=== PATIENT | female | born 1995 | race Caucasian/White ===

== ENCOUNTER → 2020-05-29 14:05 | Outpatient (BNVA) | payer BC, SELFPAY | PROVIDERS: Family Provider Family Medicine; Visit Provider Nurse Practitioner Women's Health | DX: Z30.431 Encounter for routine checking of intrauterine contraceptive device (principal); R10.2 Pelvic and perineal pain | CPT/HCPCS: 87491; 87591; 87661 ==

== ENCOUNTER → 2020-06-07 08:10 | Outpatient (BNVA) | payer BC, SELFPAY | PROVIDERS: Family Provider Family Medicine; Visit Provider Nurse Practitioner Women's Health | DX: Z30.431 Encounter for routine checking of intrauterine contraceptive device (principal); R10.2 Pelvic and perineal pain | CPT/HCPCS: 76830 ==

== ENCOUNTER 2020-07-27 06:48 | Inpatient (IN) | payer BC, SELFPAY ==
[2020-07-27 06:55] VITALS: BP 127/80; PULSE 110; RESP 18; TEMP 36.6; O2SAT 98; BMI 23.3
--- NOTE | 2020-07-27 07:20 | W.ED.WOUNDLC ---
HPI - Wound/Laceration General: Chief Complaint: Wound/Laceration Stated Complaint: R LEG LAC Time Seen by Provider: 07/27/20 07:06 History of Present Illness: HPI narrative: 24-year-old female presents emergency room after an incident of self-harm she stabbed herself in the lower leg laterally. She did it in an attempt to harm herself last night after breaking up with her boyfriend she was extremely upset. Now she is awake alert and sober she denies any plan at this point to harm herself although she does admit she did this out of frustration anger with her current situation last night. Onset (ago): hour(s) Extremity Location: Right: lower leg Place: home Patient tetanus UTD: No Associated symptoms: Denies chills, fever(s), foreign body sensation, inability to move, numbness, pain, syncope or vomiting Review of Systems Const: Denies: fever(s) or chills ENMT: Denies: throat pain, ear or mastoid pain, nasal discharge or nasal congestion Card: Denies: syncope Resp: Denies: dyspnea, productive cough or non-productive cough GI: Denies: vomiting : Denies: flank pain, difficulty voiding, dysuria, urinary frequency or urinary urgency Skin/Breast: Denies: rash or pruritus PFSH ED PFSH: Medical History Anxiety with depression Surgical History H/O unilateral salpingectomy (~2009) Left-- at the same time of her appy History of appendectomy (~2009) Family History Grandmother Breast cancer, Onset Age: 50 Paternal grandmother Diabetes Maternal grandmother Hypertension Paternal grandmother Family/Other Diabetes Paternal uncle Denies family history of Colon cancer Ovarian cancer Heart disease Hyperlipidemia Family history of thyroid problem Uterine cancer Social History Additional social history: Tobacco use: Denies Alcohol use: Denies Drug use: Marijuana use for pain management Physical Exam Const: COMMON NORMALS: no acute distress GENERAL APPEARANCE: cooperative and comfortable ORIENTATION/CONSCIOUSNESS: Yes awake, Yes oriented to person, Yes oriented to place and Yes oriented to time HENMT: COMMON NORMALS: normocephalic, atraumatic and hearing grossly normal bilaterally HEAD & SCALP: normocephalic and atraumatic Eye: COMMON NORMALS: Equal, round and reactive pupils present, EOMs intact bilaterally, conjunctivae normal and no scleral icterus CONJUNCTIVA: Yes conjunctivae normal PUPIL: Yes Equal, round and reactive pupils present Neck/C-Spine: COMMON NORMALS: full ROM, no lymphadenopathy, supple and no JVD Lymph: LYMPHATIC: no lymphadenopathy noted and no lymphedema noted Resp: COMMON NORMALS: normal respiratory effort, No retractions, No use of accessory muscles and clear to auscultation bilaterally AUSCULTATION: clear to auscultation bilaterally Cardio: COMMON NORMALS: no JVD, regular rate, regular rhythm and No murmurs present (Cardio) RATE: regular rate RHYTHM: regular rhythm GI: COMMON NORMALS: Soft to palpation and No hepatosplenomegaly present AUSCULTATION: Yes normoactive bowel sounds PALPATION: Yes Soft to palpation, No Tenderness to palpation present (GI), No Guarding due to palpation present (GI) and Yes No hepatosplenomegaly present Neuro: SENSORIUM/ORIENTATION: Yes oriented to person, Yes oriented to place and Yes oriented to time Skin: COMMON NORMALS: no rashes or lesions noted GENERAL SKIN EXAM: no rashes or lesions noted Course Vital Signs: Vital signs: Vital Signs Temperature 98.3 F 07/29/20 06:00 Pulse Rate 85 07/29/20 06:00 Respiratory Rate 16 07/29/20 06:00 Blood Pressure 107/70 07/29/20 06:00 Pulse Oximetry 98 07/29/20 06:00 MDM - Wound/Laceration MDM Narrative: Medical decision making narrative: Wound repaired by [facility] nurse practitioner. Discussed with Dr. Ace recommend that she be admitted. Concerned about irrational decision making the wound she inflicted on her leg had a been inflicted in another area could have caused serious bodily injury. She is still somewhat distraught and concerned she may further harm herself if she were discharged Dr. Ace is in agreement will admit her to the stress unit. Lab Data: Labs: Lab Results 09/25/20 09/25/20 09/25/20 Range/Units 07:21 07:21 07:21 WBC (4.0-10.0) 10^3/ uL RBC (4.1-5.3) 10^6/u L Hgb (11.5-15.3) g/dL Hct (37.0-47.0) % MCV (81-99) fL MCH (28.0-34.0) pg MCHC (30.0-36.0) g/dL RDW (12.1-15.1) % Plt Count (130-400) 10^3/c mm MPV (7.4-10.4) fL Neut % (Auto) % Lymph % (Auto) % Gonzales % (Auto) % Eos % (Auto) % Baso % (Auto) % Neut # (Auto) (1.8-7.7) 10^3/u L Lymph # (Auto) (0.8-4.8) 10^3/u L Gonzales # (Auto) (0.2-0.9) 10^3/u L Eos # (Auto) (0.0-0.8) 10^3/u L Baso # (Auto) (0.0-0.1) 10^3/u L Nucleated RBC % (a uto) % Nucleated RBCs # /100WBC Sodium (136-145) mmol/L Potassium (3.5-5.1) mmol/L Chloride (98-107) mmol/L Carbon Dioxide (22-29) mmol/L Anion Gap (5-19) BUN (6-20) mg/dL Creatinine (0.5-0.9) mg/dL GFR Calculation (90-130) mL/min Glucose (65-115) mg/dL Calculated Osmolal ity (285-295) mOsm/k g Calcium (8.5-10.5) mg/dL Total Bilirubin (0.15-1.2) mg/dL AST (0-32) U/L ALT (0-33) U/L Alkaline Phosphata se (35-105) IU/L Total Protein (6.6-8.7) g/dL Albumin (3.5-5.2) g/dL Globulin (1.3-4.6) g/dL HCG, Qual Negative (Negative) Urine Color Yellow (Yellow) Urine Appearance Sl hazy (CLEAR) Urine pH 5 (5-7) Ur Specific Gravit y 1.020 (1.005-1.030) Urine Protein Trace (Negative) Urine Glucose (UA) Norm (Normal) Urine Ketones 1+ H (Negative) Urine Blood 2+ H (Negative) Urine Nitrate Negative (Negative) Urine Bilirubin Neg (Negative) Urine Urobilinogen 1 H (Negative) mg/dL Ur Leukocyte Carrie ase Negative (Negative) Urine RBC 10-15 H (0-2) /hpf Urine WBC 0-4 H (0-5) /hpf Ur Squamous Epith Cells 10-15 H (0-5) /hpf Amorphous Sediment Not Reportable Urine Bacteria Trace (NONE) /hpf Urine Mucus 3+ /hpf Salicylates (3-10) mg/dL Urine Opiates Scre en Negative (Negative) ng/mL Acetaminophen (10-30) ug/mL Ur Barbiturates Sc reen Negative (Negative) ng/mL Ur Phencyclidine S crn Negative (Negative) ng/mL Ur Amphetamines Sc reen Negative (Negative) ng/mL U Benzodiazepines Scrn Negative (Negative) ng/mL Urine Cocaine Scre en Negative (Negative) ng/mL U Marijuana (THC) Screen Positive H (Negative) ng/mL Ethyl Alcohol (0-10) mg/dL 07/27/20 07/27/20 Range/Units 07:40 07:40 WBC 10.3 H (4.0-10.0) 10^3/ uL RBC 4.39 (4.1-5.3) 10^6/u L Hgb 14.4 (11.5-15.3) g/dL Hct 43.5 (37.0-47.0) % MCV 99.1 H (81-99) fL MCH 32.8 (28.0-34.0) pg MCHC 33.1 (30.0-36.0) g/dL RDW 12.2 (12.1-15.1) % Plt Count 295 (130-400) 10^3/c mm MPV 10.6 H (7.4-10.4) fL Neut % (Auto) 61.8 % Lymph % (Auto) 28.3 % Gonzales % (Auto) 8.9 % Eos % (Auto) 0.2 % Baso % (Auto) 0.5 % Neut # (Auto) 6.39 (1.8-7.7) 10^3/u L Lymph # (Auto) 2.9 (0.8-4.8) 10^3/u L Gonzales # (Auto) 0.9 (0.2-0.9) 10^3/u L Eos # (Auto) 0.0 (0.0-0.8) 10^3/u L Baso # (Auto) 0.1 (0.0-0.1) 10^3/u L Nucleated RBC % (a uto) 0 % Nucleated RBCs # 0.0 /100WBC Sodium 137 (136-145) mmol/L Potassium 3.6 (3.5-5.1) mmol/L Chloride 101 (98-107) mmol/L Carbon Dioxide 23 (22-29) mmol/L Anion Gap 16.6 (5-19) BUN 8 (6-20) mg/dL Creatinine 0.5 (0.5-0.9) mg/dL GFR Calculation 154.3 H (90-130) mL/min Glucose 106 (65-115) mg/dL Calculated Osmolal ity 283 L (285-295) mOsm/k g Calcium 9.5 (8.5-10.5) mg/dL Total Bilirubin 0.7 (0.15-1.2) mg/dL AST 15 (0-32) U/L ALT 10 (0-33) U/L Alkaline Phosphata se 62 (35-105) IU/L Total Protein 7.7 (6.6-8.7) g/dL Albumin 4.9 (3.5-5.2) g/dL Globulin 2.8 (1.3-4.6) g/dL HCG, Qual (Negative) Urine Color (Yellow) Urine Appearance (CLEAR) Urine pH (5-7) Ur Specific Gravit y (1.005-1.030) Urine Protein (Negative) Urine Glucose (UA) (Normal) Urine Ketones (Negative) Urine Blood (Negative) Urine Nitrate (Negative) Urine Bilirubin (Negative) Urine Urobilinogen (Negative) mg/dL Ur Leukocyte Carrie ase (Negative) Urine RBC (0-2) /hpf Urine WBC (0-5) /hpf Ur Squamous Epith Cells (0-5) /hpf Amorphous Sediment Urine Bacteria (NONE) /hpf Urine Mucus /hpf Salicylates < 0.3 L (3-10) mg/dL Urine Opiates Scre en (Negative) ng/mL Acetaminophen < 5.0 L (10-30) ug/mL Ur Barbiturates Sc reen (Negative) ng/mL Ur Phencyclidine S crn (Negative) ng/mL Ur Amphetamines Sc reen (Negative) ng/mL U Benzodiazepines Scrn (Negative) ng/mL Urine Cocaine Scre en (Negative) ng/mL U Marijuana (THC) Screen (Negative) ng/mL Ethyl Alcohol < 10 (0-10) mg/dL Discharge Plan Discharge Patient Disposition: Admitted As Inpatient Admit Provider: Munir Ace Clinical Impression: Anxiety with depression, Self-inflicted injury Condition: Stable Interventions: ED Discharge Assessment Last Done: 07/27/20 12:12 ED Charges Last Done: 07/27/20 12:12 Discharge Date/Time: 07/27/20 12:18 Coding Level of Care Code 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
[2020-07-27] MEDS: tetanus-dipt-pertussis 0.5 mL SDV IM (07:43)
--- NOTE | 2020-07-27 07:44 | PC.NURSE ---
pt placed in paper scrubs, all belongings in pt belongings bag. Sitter at bedside
[2020-07-27 07:46] LABS: Basophils # 0.1 10^3/uL (0.0-0.1); Basophils % 0.5 %; Eosinophils % 0.2 %; Hematocrit 43.5 % (37.0-47.0); Hemoglobin 14.4 g/dL (11.5-15.3); Lymphocytes # 2.9 10^3/uL (0.8-4.8); Lymphocytes % 28.3 %; Mean Corpuscular HGB Conc 33.1 g/dL (30.0-36.0); Mean Corpuscular Hemoglobin 32.8 pg (28.0-34.0); Mean Corpuscular Volume 99.1 fL (81-99); Mean Platelet Volume 10.6 fL (7.4-10.4); Monocytes # 0.9 10^3/uL (0.2-0.9); Monocytes % 8.9 %; Neutrophils # 6.39 10^3/uL (1.8-7.7); Neutrophils % 61.8 %; Nucleated Red Blood Cells % 0 %; Platelet Count 295 10^3/cmm (130-400); Red Blood Count 4.39 10^6/uL (4.1-5.3); Red Cell Distribution Width 12.2 % (12.1-15.1); White Blood Count 10.3 10^3/uL (4.0-10.0)
[2020-07-27 07:52] LABS: Add Urine Microscopic? YES; Bilirubin Urine Neg (Negative); Blood Urine 2+ (Negative); Glucose Urine UA Norm (Normal); HCG Qualitative Urine. Negative (Negative); Ketones Urine 1+ (Negative); Leukocyte Esterase Urine Negative (Negative); Nitrate Urine Negative (Negative); Protein Urine Trace (Negative); Urine Appearance SL Hazy (CLEAR); Urine Color Yellow (Yellow); Urobilinogen Urine 1 mg/dL (Negative); pH Urine 5 (5-7)
[2020-07-27 07:59] LABS: Amphetamines Screen Urine Negative (Negative); Barbiturates Screen Urine Negative (Negative); Benzodiazepines Screen Urine Negative (Negative); Cocaine Screen Urine Negative (Negative); Opiate Screen Urine Negative (Negative); PCP Screen Urine Negative (Negative); THC Screen Urine Positive (Negative)
[2020-07-27 08:00] LABS: WBC Urine 0-4 /hpf (0-5)
[2020-07-27 08:01] LABS: Bacteria Urine TRACE /hpf; Mucus Urine 3+ /hpf
[2020-07-27 08:02] LABS: Add Urine Culture? No
[2020-07-27 08:07] LABS: Alanine Aminotransferase 10 U/L (0-33); Albumin Level 4.9 g/dL (3.5-5.2); Alkaline Phosphatase 62 IU/L (35-105); Anion Gap 16.6 (5-19); Aspartate Amino Transferase 15 U/L (0-32); Blood Urea Nitrogen 8 mg/dL (6-20); Calcium 9.5 mg/dL (8.5-10.5); Carbon Dioxide 23 mmol/L (22-29); Chloride 101 mmol/L (98-107); Globulin 2.8 g/dL (1.3-4.6); Glomerular Filtration Rate 154.3 mL/min (90-130); Glucose 106 mg/dL (65-115); Osmolality Calculated 283 mOsm/kg (285-295); Potassium 3.6 mmol/L (3.5-5.1); Sodium 137 mmol/L (136-145); Total Bilirubin 0.7 mg/dL (0.15-1.2); Total Protein 7.7 g/dL (6.6-8.7)
[2020-07-27 08:10] LABS: Acetaminophen < 5.0 ug/mL (10-30); Alcohol Level < 10 mg/dL (0-10); Salicylate < 0.3 mg/dL (3-10)
[2020-07-27 12:12] VITALS: BP 124/62; PULSE 83; RESP 16; O2SAT 98
[2020-07-27 12:15] VITALS: BP 121/83; PULSE 80; RESP 18; TEMP 37; O2SAT 95
[2020-07-27 14:00] VITALS: BP 121/83; PULSE 80; RESP 18; TEMP 37
--- NOTE | 2020-07-27 14:00 | PC.NURSE ---
LACERATION Patient arrived on NPU unit with sutured laceration from ER. Laceration was uncovered and bleeding. Skin surrounding was puffy and pink. This nurse cleansed and covered laceration on leg with Telfa and Covaderm. Will monitor for infection, drainage, healing, etc.
[2020-07-27 22:00] VITALS: BP 95/63; PULSE 90; RESP 16; TEMP 36.8; O2SAT 99
[2020-07-28 06:00] VITALS: BP 100/62; PULSE 98; RESP 17; TEMP 36.7; O2SAT 99
--- NOTE | 2020-07-28 11:37 | PM.NHP ---
Providers/Chief Complaint Admitting Physician: Munir Ace MD Primary Care Provider: Heaven Ortega MD Chief Complaint: R LEG LAC HPI NPU History of Present Illness Rivka Bustillo is a 24 year old female who presents today reporting that she started having treatment for her anxiety in tenth or eleventh grade. She reports that she has been anxious basically her whole life. She reports that she really struggled with feeling nervous and out of place, as a child, and by middle school she was doing self-injurious behavior regularly. She reports that once she got to high school she was having anxiety really bad, and had panic attacks two or three times a week. Then, she reports that decreased to two to three times a month. She started going to treatment at [facility], and they got her on medication; the side effects were tough, but the medication did help somewhat, reducing her panic attacks to one to two times per month. She reports that she ended up stopping the medication. She denies ever having psychiatric hospitalizations. Fast forward to her current situation, she reports that her boyfriend of five years broke up with her. She currently has been cutting maybe two to three times a year, but as she normally does in these situations where she needs significant dampening of her anxiety and angst, she cut herself on the ankle, but did not intend for the cut to be as extreme as it was. She vehemently denies that is was a suicide attempt. She reports that, at this point, she would like to go home but also knows that getting back into treatment and on medication would be the right thing, but she wants to go home as soon as possible. We discussed getting her started on medication today, and then taking it a day at a time from the standpoint of discharge. We discussed the risks, benefits, and alternatives of different medications, and she understood and agreed to proceed as is documented in this note. PSYCHIATRIC HISTORY: As above. SUBSTANCE ABUSE HISTORY: She denies using cigarettes or drinking alcohol other than occasionally. But she reports she does smoke marijuana daily if she has the money. She denies any cocaine, methamphetamine, or opiate abuse. She denies having gone to drug rehabilitations or having any DUI?s. FAMILY HISTORY: She endorses mental health issues on both sides of the family, as well as addiction issues on both sides of the family. She denies history of suicide attempts or completions in her family. 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 She reports she learned to walk and talk and met her developmental milestones on time. She denies speech therapy, learning support, emotional support, or special education classes, except she reportedly has dyslexia and they did help her with some work initially, before sending her back to regular classes. PSYCHOSOCIAL HISTORY: She reports that her parents were together when she was born but split up when she was about 7 years old. There were three children that were a product of that union, her older brother and her younger sister and she. She does have a half sister through her mother and denies her dad having any other siblings. She reports that her childhood was tough, at times, because they were really poor, but she denies emotional, physical, or sexual abuse. She does report that she wonders sometimes though, because she has what she describes as suppressed memories from time to time, and she wonders if there is something that she has forgotten. She endorses graduating from high school and thinking about college. She endorses being bisexual, with her longest relationship being five years. She has never been or had children. She has never being in the . She identifies herself as agnostic. Her longest job has been three years with [employer]. She currently lives in a house with her boyfriend but they are going to move out of that place that they have together; she is going to move in with her mom. LEGAL HISTORY: She denies being in penitentiary or ever having significant legal peril. MEDICAL HISTORY: She endorses that she has the laceration from the self directed harming. She reports that they have a suspicion that she has endometriosis but it has not been confirmed. Meds NPU Home Medications Medication Instructions Recorded Confirmed Last Taken Type levonorgestrel-ethinyl estrad 1 tab PO DAILY 07/27/20 07/27/20 Unknown History [Michael (28)] Allergies Allergy/AdvReac Type Severity Reaction Status Date / Time No Known Allergies Allergy Verified 07/27/20 08:41 PFS NPU PFS: Medical History (Updated 07/28/20 @ 13:03 by Munir Ace MD) Anxiety with depression Surgical History H/O unilateral salpingectomy (~2009) Left-- at the same time of her appy History of appendectomy (~2009) Family History Grandmother Breast cancer, Onset Age: 50 Paternal grandmother Diabetes Maternal grandmother Hypertension Paternal grandmother Family/Other Diabetes Paternal uncle Denies family history of Colon cancer Ovarian cancer Heart disease Hyperlipidemia Family history of thyroid problem Uterine cancer Social History Additional social history: Tobacco use: Denies Alcohol use: Denies Drug use: Marijuana use for pain management Mental Status Exam MSE Comments: This is a well-nourished, well-developed, white female, with adequate dress, grooming, and eye contact. No abnormal movements, except for mild psychomotor retardation. Cooperative with exam in no acute distress. Speech was slightly decreased rate and volume. Mood described as anxious; affect slightly subdued. Thought process, organized. Thought content: patient denied any suicidal or homicidal ideation, there were no delusions reported or noted, patient denied any auditory or visual hallucinations. Attention, concentration, and memory appear intact but none were formally tested. She is alert and oriented times three. Insight and judgment are limited. Impulse control is limited. Vitals/I&O/Wt Last Vital Signs Temp 98.0 F 07/28/20 06:00 Pulse 98 07/28/20 06:00 Resp 17 07/28/20 06:00 BP 100/62 07/28/20 06:00 Pulse Ox 99 07/28/20 06:00 Weight last 48 hrs Weight 65.771 kg Data NPU : 07/27/20 07:40 07/27/20 07:40 A&P Assessment and plan (1) Anxiety with depression: Status: Acute (2) Borderline personality disorder: Status: Acute (3) Cannabis abuse: Status: Acute Additional A&P Information This is an almost 25 year old, white female, with borderline personality disorder, depressive disorder, unspecified, anxiety disorder, unspecified, and rule out generalized anxiety disorder, who presents with a recent laceration after a break up, that she denies was suicidal in intent, with a history of self-injurious behavior, who presents open to a trial of medication. Continue current medication. Start Propranolol 10 mg po tid. Start Lexapro 10 mg po qam. Encourage individual, group, and milieu therapy. Continue q-15 minute checks for safety. Recommend sober living treatment at the highest level of care to which the patient is willing to commit. Involuntary Hold Information 96 Hour Hold: 96 Hour Involuntary Admission: No Attestations NPU Medical Necessity Statement*: Inpatient hospitalization is medically necessary and the clinically appropriate intervention, at this time. We will monitor medications and make changes as indicated. Patient will be in the hospital for over two midnights. Likely length of stay is two to four days. 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
[2020-07-28] MEDS: escitalopram 10 mg Tablet PO (12:40)
[2020-07-28 14:00] VITALS: BP 107/71; PULSE 81; RESP 18; TEMP 36.5
[2020-07-28] MEDS: propranolol 20 mg Tablet 10 MG PO ×2 (14:19→21:23)
[2020-07-28 21:24] VITALS: BP 110/74; PULSE 66; RESP 17; TEMP 37.1; O2SAT 98
[2020-07-29 06:00] VITALS: BP 107/70; PULSE 85; RESP 16; TEMP 36.8; O2SAT 98
[2020-07-29] MEDS: escitalopram 10 mg Tablet PO (08:32)
[2020-07-29] MEDS: propranolol 20 mg Tablet 10 MG PO (08:32)
--- NOTE | 2020-07-29 09:23 | PM.NDC ---
Diagnoses at Discharge Discharge Diagnosis (1) Anxiety with depression: Status: Acute (2) Borderline personality disorder: Status: Acute (3) Cannabis abuse: Status: Acute Reason for Visit Reason for Visit: R LEG LAC Brief History: History of Present Illness Rivka Bustillo is a 24 year old female who presents today reporting that she started having treatment for her anxiety in tenth or eleventh grade. She reports that she has been anxious basically her whole life. She reports that she really struggled with feeling nervous and out of place, as a child, and by middle school she was doing self-injurious behavior regularly. She reports that once she got to high school she was having anxiety really bad, and had panic attacks two or three times a week. Then, she reports that decreased to two to three times a month. She started going to treatment at [facility], and they got her on medication; the side effects were tough, but the medication did help somewhat, reducing her panic attacks to one to two times per month. She reports that she ended up stopping the medication. She denies ever having psychiatric hospitalizations. Fast forward to her current situation, she reports that her boyfriend of five years broke up with her. She currently has been cutting maybe two to three times a year, but as she normally does in these situations where she needs significant dampening of her anxiety and angst, she cut herself on the ankle, but did not intend for the cut to be as extreme as it was. She vehemently denies that is was a suicide attempt. She reports that, at this point, she would like to go home but also knows that getting back into treatment and on medication would be the right thing, but she wants to go home as soon as possible. We discussed getting her started on medication today, and then taking it a day at a time from the standpoint of discharge. We discussed the risks, benefits, and alternatives of different medications, and she understood and agreed to proceed as is documented in this note. PSYCHIATRIC HISTORY: As above. SUBSTANCE ABUSE HISTORY: She denies using cigarettes or drinking alcohol other than occasionally. But she reports she does smoke marijuana daily if she has the money. She denies any cocaine, methamphetamine, or opiate abuse. She denies having gone to drug rehabilitations or having any DUI?s. FAMILY HISTORY: She endorses mental health issues on both sides of the family, as well as addiction issues on both sides of the family. She denies history of suicide attempts or completions in her family. 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 She reports she learned to walk and talk and met her developmental milestones on time. She denies speech therapy, learning support, emotional support, or special education classes, except she reportedly has dyslexia and they did help her with some work initially, before sending her back to regular classes. PSYCHOSOCIAL HISTORY: She reports that her parents were together when she was born but split up when she was about 7 years old. There were three children that were a product of that union, her older brother and her younger sister and she. She does have a half sister through her mother and denies her dad having any other siblings. She reports that her childhood was tough, at times, because they were really poor, but she denies emotional, physical, or sexual abuse. She does report that she wonders sometimes though, because she has what she describes as suppressed memories from time to time, and she wonders if there is something that she has forgotten. She endorses graduating from high school and thinking about college. She endorses being bisexual, with her longest relationship being five years. She has never been or had children. She has never being in the . She identifies herself as agnostic. Her longest job has been three years with [employer]. She currently lives in a house with her boyfriend but they are going to move out of that place that they have together; she is going to move in with her mom. LEGAL HISTORY: She denies being in snf or ever having significant legal peril. MEDICAL HISTORY: She endorses that she has the laceration from the self directed harming. She reports that they have a suspicion that she has endometriosis but it has not been confirmed. Hospital Course Hospital Course The patient presented to the emergency room after an incident of self harm, where she stabbed herself in the lower leg laterally. She did it in an attempt to harm herself, after breaking up with her boyfriend, and she was extremely upset. She was alert and awake and sober in the emergency room, and she denied any plan to kill herself. She endorsed she did this out of frustration and anger. The concern, when the emergency room reached out to this promotion writer, was that even though people were convinced that her intention was not to kill herself, it was such a dangerous behavior, and the risks of her having serious or dangerous outcomes, regardless of her intention, were concerning enough that she was admitted to the neuropsychiatric unit for definitive treatment of her issues. On the unit, she was open and receptive to discussion and exploration of her situation. She quickly acclimated to the individual, group, and milieu therapies provided. She was notable for Cluster B pathology, and was open to medication trials. Lexapro 10 mg qam, and Propranolol 10 mg po tid, were initiated with positive response. During the hospitalization, the patient had routine laboratory studies which were within normal limits, except for a few outliers. Additionally, the patient had a general medical evaluation which was within normal limits and revealed no new acute processes, except for the laceration that needed tending to and suturing in the emergency department. Discharge Summary At the time of discharge the patient denied all lethality, was absent psychosis, and mood and anxiety were well managed. The patient endorsed a plan to avoid all drugs of abuse and to follow-up with outpatient services, as recommended. The patient was evaluated and deemed to be absent credible lethality, and had achieved the maximum benefit from an inpatient hospitalization, and so she was discharged. Involuntary Hold Information 96 Hour Hold: 96 Hour Involuntary Admission: No Mental Status Exam MSE Comments: This is a well-nourished, well-developed, white female, with adequate dress, grooming, and eye contact. No abnormal movements. Cooperative with exam in no acute distress. Speech was more normal rate and volume. Mood described as better affect congruent. Thought process, organized. Thought content: patient denied any suicidal or homicidal ideation, there were no delusions reported or noted, patient denied any auditory or visual hallucinations. Attention, concentration, and memory appear intact but none were formally tested. She is alert and oriented times three. Insight and judgment are improving. Impulse control is limited, but improving. Discharge Data Vitals: Last Vital Signs Temp 98.3 F 07/29/20 06:00 Pulse 85 07/29/20 06:00 Resp 16 07/29/20 06:00 BP 107/70 07/29/20 06:00 Pulse Ox 98 07/29/20 06:00 Discharge Plan Discharge Patient Disposition: Home Condition: Stable Prescriptions: New propranolol 20 mg Tablet 10 mg PO TID 30 Days Qty: 45 RF: 1 escitalopram oxalate 10 mg Tablet 10 mg PO DAILY 30 Days Qty: 30 RF: 1 Continued Kurvelo (28) 0.15-0.03 mg tablet 1 tab PO DAILY RF: 0 Discharge Orders: Discharge Order (Routine); Ordered 07/29/20 Ordered By: Munir Ace Discharge Diet: Regular Discharge Activity: Resume usual activity Discharge Date/Time: 07/29/20 11:28 Discharge Attestations NPU Time Spent in Discharge Care*: less than 30 min Specific Discharge Activities: Specific discharge activities: educating patient, documenting/other paperwork and evaluating patient/reviewing data Coding Level of Care Code Acute Inspector Conveyor Line for [facility] Fwd Diagnoses Anxiety with depression F41.8 Borderline personality disorder F60.3 Cannabis abuse F12.10
[2020-07-29 09:57] VITALS: BP 107/70; PULSE 85; RESP 16; TEMP 36.8; O2SAT 98
== END 2020-07-29 11:28 | disposition home or self-care (01) | DRG 880 ==
LOC: ER 11:40 → NP 12:03
PROVIDERS: Family Medicine; Admitting Provider Psychiatry & Neurology Psychiatry; PCP Family Medicine; Visit Provider Psychiatry & Neurology Psychiatry
DX: F41.8 Other specified anxiety disorders (principal); F60.3 Borderline personality disorder; F12.10 Cannabis abuse, uncomplicated
CPT/HCPCS: 12345; 36415; 80053; 80306; 80307; 81001; 81025; 85025; 90471; 90715; 99282

== ENCOUNTER → 2020-08-28 17:01 | Outpatient (BNVA) | payer SELFPAY | PROVIDERS: PCP Family Medicine; Visit Provider Nurse Practitioner Family | DX: N92.6 Irregular menstruation, unspecified (principal) | CPT/HCPCS: 81025 ==

== ENCOUNTER → 2020-08-30 14:40 | Outpatient (BNVA) | payer SELFPAY | PROVIDERS: PCP Family Medicine; Visit Provider Nurse Practitioner Women's Health | DX: Z34.90 Encounter for supervision of normal pregnancy, unspecified, unspecified trimester (principal) | CPT/HCPCS: 84702 ==

== ENCOUNTER → 2020-09-11 13:35 | Outpatient (BNVA) | payer SELFPAY | PROVIDERS: PCP Family Medicine; Visit Provider Nurse Practitioner Women's Health | DX: O21.9 Vomiting of pregnancy, unspecified; F41.9 Anxiety disorder, unspecified; O99.341 Other mental disorders complicating pregnancy, first trimester; F32.9 Major depressive disorder, single episode, unspecified; F60.3 Borderline personality disorder | CPT/HCPCS: 81000 ==

== ENCOUNTER → 2020-11-07 15:40 | Outpatient (BNVA) | payer MEDICAID, SELFPAY | PROVIDERS: PCP Family Medicine; Visit Provider Obstetrics & Gynecology | DX: Z34.01 Encounter for supervision of normal first pregnancy, first trimester (principal) | CPT/HCPCS: 80307; 84315; 85027; 86592; 86762; 86803; 86850; 86900; 87086; 87340; 87491; 87591; 87806 ==

== ENCOUNTER → 2020-12-04 15:04 | Outpatient (BNVA) | payer MEDICAID, SELFPAY | PROVIDERS: PCP Family Medicine; Visit Provider Obstetrics & Gynecology | DX: Z36.89 Encounter for other specified antenatal screening (principal) | CPT/HCPCS: 76805 ==

== ENCOUNTER → 2021-01-14 14:30 | Outpatient (BNVA) | payer MEDICAID, SELFPAY | PROVIDERS: PCP Family Medicine; Visit Provider Nurse Practitioner Psychiatric/Mental Health | DX: F33.1 Major depressive disorder, recurrent, moderate (principal); F41.9 Anxiety disorder, unspecified | CPT/HCPCS: 99214 ==

== ENCOUNTER → 2021-01-28 14:06 | Outpatient (BNVA) | payer MEDICAID, SELFPAY | PROVIDERS: PCP Family Medicine; Visit Provider Obstetrics & Gynecology | DX: Z34.02 Encounter for supervision of normal first pregnancy, second trimester (principal) | CPT/HCPCS: 82950; 84315; 85027 ==

== ENCOUNTER → 2021-02-11 08:18 | Outpatient (BNVA) | payer MEDICAID, SELFPAY | PROVIDERS: PCP Family Medicine; Visit Provider Nurse Practitioner Psychiatric/Mental Health | DX: F33.1 Major depressive disorder, recurrent, moderate (principal); F41.9 Anxiety disorder, unspecified; F60.3 Borderline personality disorder | CPT/HCPCS: 84315; 99213 ==

== ENCOUNTER → 2021-03-12 13:04 | Outpatient (BNVA) | payer MEDICAID, SELFPAY | PROVIDERS: PCP Family Medicine; Visit Provider Nurse Practitioner Women's Health | DX: O21.9 Vomiting of pregnancy, unspecified (principal); Z3A.00 Weeks of gestation of pregnancy not specified | CPT/HCPCS: 81000 ==

== ENCOUNTER → 2021-03-25 08:45 | Outpatient (BNVA) | payer MEDICAID, SELFPAY | PROVIDERS: PCP Family Medicine; Visit Provider Nurse Practitioner Psychiatric/Mental Health | DX: Z34.80 Encounter for supervision of other normal pregnancy, unspecified trimester (principal) | CPT/HCPCS: 84315; 87081 ==

== ENCOUNTER 2021-04-04 11:35 | Inpatient (IN) | payer MEDICAID, SELFPAY ==
[2021-04-04] VITALS (21 sets, daily range): BP systolic 130–147; BP diastolic 88–104; PULSE 59–93; RESP 16–18; TEMP 36.4–36.9; BMI 27.4
[2021-04-04 11:07] LABS: Basophils % 0.3 %; Eosinophils # 0.1 10^3/uL (0.0-0.8); Eosinophils % 0.5 %; Hematocrit 37.2 % (37.0-47.0); Hemoglobin 12.4 g/dL (11.5-15.3); Lymphocytes # 2.8 10^3/uL (0.8-4.8); Lymphocytes % 20.7 %; Mean Corpuscular HGB Conc 33.3 g/dL (30.0-36.0); Mean Corpuscular Hemoglobin 33.1 pg (28.0-34.0); Mean Corpuscular Volume 99.2 fL (81-99); Mean Platelet Volume 11.7 fL (7.4-10.4); Monocytes # 1.1 10^3/uL (0.2-0.9); Monocytes % 8.4 %; Neutrophils # 9.17 10^3/uL (1.8-7.7); Neutrophils % 68.5 %; Nucleated Red Blood Cells % 0 %; Platelet Count 243 10^3/cmm (130-400); Red Blood Count 3.75 10^6/uL (4.1-5.3); Red Cell Distribution Width 13.7 % (12.1-15.1); White Blood Count 13.4 10^3/uL (4.0-10.0)
[2021-04-04 11:25] LABS: Alanine Aminotransferase 8 U/L (0-33); Albumin Level 3.5 g/dL (3.5-5.2); Alkaline Phosphatase 253 IU/L (35-105); Anion Gap 16.4 (5-19); Aspartate Amino Transferase 15 U/L (0-32); Blood Urea Nitrogen 6 mg/dL (6-20); Calcium 8.8 mg/dL (8.5-10.5); Carbon Dioxide 21 mmol/L (22-29); Chloride 104 mmol/L (98-107); Glomerular Filtration Rate 197.8 mL/min (90-130); Glucose 86 mg/dL (65-115); Osmolality Calculated 281 mOsm/kg (285-295); Potassium 4.4 mmol/L (3.5-5.1); Sodium 137 mmol/L (136-145); Total Bilirubin 0.2 mg/dL (0.15-1.2); Total Protein 6.5 g/dL (6.6-8.7); Uric Acid 4.9 mg/dL (2.4-5.7)
[2021-04-04 11:36] LABS: Add Urine Microscopic? YES; Bilirubin Urine Neg (Negative); Blood Urine 2+ (Negative); Glucose Urine UA Norm (Normal); Ketones Urine Negative (Negative); Leukocyte Esterase Urine Negative (Negative); Nitrate Urine Negative (Negative); Protein Urine Trace (Negative); Urine Appearance Clear (CLEAR); Urine Color Yellow (Yellow); Urobilinogen Urine 1 mg/dL (Negative); pH Urine 6 (5-7)
[2021-04-04 11:37] LABS: Bacteria Urine TRACE /hpf; Hyaline Casts Urine 0-4 /lpf; Mucus Urine 2+ /hpf; RBC Urine 15-25 /hpf (0-2); UPRO/UCREAT Ratio 0.45 mg/mg CR; Urine Creatinine 163 mg/dL (28-217); Urine Protein Random 74 mg/dL
[2021-04-04 11:38] LABS: Add Urine Culture? Yes
[2021-04-04] MEDS: miSOPROStol 100 mcg tablet 25 MCG VAGINAL ×3 (13:35→21:52)
[2021-04-04 14:42] LABS: Amphetamines Screen Urine Negative (Negative); Barbiturates Screen Urine Negative (Negative); Benzodiazepines Screen Urine Negative (Negative); Cocaine Screen Urine Negative (Negative); Opiate Screen Urine Negative (Negative); PCP Screen Urine Negative (Negative); THC Screen Urine Positive (Negative)
--- NOTE | 2021-04-04 18:15 | PM.PN ---
Subjective Subjective: Interval history: Mrs. Bustillo 25-year-old, 1, Para 0 with unknown LMP and an EDC of 04/22/2021 based on a 7-week ultrasound, which places her at 37 3/7 weeks gestation. Admitted for labor induction due to preeclampsia Vitals/I&O/Wt Last Vital Signs Temp 98.4 F 04/04/21 11:56 Pulse 77 04/04/21 17:25 Resp 17 04/04/21 13:03 BP 140/90 04/04/21 17:25 Weight last 48 hrs Weight 77.111 kg Physical Exam Narrative: EXAM NARRATIVE: GA: Alert and oriented ?3. Lungs: Clear to auscultation bilaterally. Heart: Regular rhythm and rate. Abdomen: Gravid, full the height equals dates, nontender. COMMUNITY YOUTH SECRETARY: SVE; dilation: 1 cm, effacement: 70%, station: -3, presentation: vx, membranes: im. Extremities: no edema, no cyanosis, no calves pain. heart tracing: Basal rate: 140's bpm, Variability: Moderate, Accelerations: Present, Decelerations: Absent, Contraction: q3min. Data : 04/04/21 10:54 04/04/21 10:54 A&P Assessment and plan (1) Pre-eclampsia in third trimester: Patient had received second misoprostol contractions every 3 minutes heart tracing category 1. Anticipate vaginal delivery Continue with continuous monitoring. Status: Acute (2) Anxiety: Status: Chronic (3) Mental disorder affecting : Status: Acute Qualifiers: Trimester: second trimester Qualified Code(s): O99.342 - Other mental disorders complicating , second trimester Attestations Medical Necessity Statement*: In my professional opinion per admitting diagnosis Coding Level of Care Code Acute Shallot Packer for [facility] F[facility] Diagnoses Pre-eclampsia in third trimester O14.93 Anxiety F41.9 Mental disorder affecting O99.342 Trimester: second trimester
[2021-04-05] VITALS (94 sets, daily range): BP systolic 107–162; BP diastolic 61–104; PULSE 59–126; RESP 15–18; TEMP 35.9–36.8; O2SAT 92–100
[2021-04-05] MEDS: miSOPROStol 100 mcg tablet 25 MCG VAGINAL (02:20)
[2021-04-05] MEDS: dextrose 5%-lactated ringers 1,000 ML 125 ML IV ×2 (04:12→14:17)
[2021-04-05] MEDS: oxytocin 30 UNIT/500 ML BAG IV (07:24)
[2021-04-05] MEDS: ondansetron 2 mg/ML SDV 2 mL 4 MG IVP ×2 (07:35→19:09)
[2021-04-05] MEDS: fentaNYL 50 mcg/mL INJ 2mL IVP ×3 (07:38→10:57)
--- NOTE | 2021-04-05 13:22 | ANES.PREANE2 ---
Pre-Anesthetic Assessment Pre-Anesthetic Assessment: Height/Weight: Height 1.68 m Weight 77.111 kg Temp Pulse Resp BP Pulse Ox 96.6 F L 84 18 127/84 99 04/05/21 07:24 04/05/21 13:17 04/05/21 10:57 04/05/21 13:05 04/05/21 13:17 Was Beta Lanette taken within 24 hours: N/A Social: Social History: No alcohol and No tobacco Exam: Pre-Anes Outpt Exam: alert, oriented x 3, clear to auscultation bilaterally and regular rate & rhythm Airway: Submandibular: WNL Cervical ROM: WNL MP: 2 Neuropsych: Neuropsych: Anxiety and Depression Comments: Borderline personality Anesthetic Plan: ASA status: 2 Anesthesia: Regional (specify below) (Labor epidural) Risk of > 500 ml blood loss (7ml/kg in children): No Meds/Allergies Current Medications: Current Medications Generic Name Dose Route Start Last Admin Trade Name Freq PRN Reason Stop Dose Admin Fentanyl 25 - 100 mcg 04/05/21 06:51 04/05/21 10:57 Fentanyl 50 Mcg/ Ml Inj 2ml IVP 50 mcg Q1H PRN Administration SEVERE PAIN Dextrose/Lactated Ringer's 1,000 mls @ 125 m ls/hr 04/04/21 12:00 04/05/21 04:13 Dextrose 5%-Lact ated Ringers IV Not Given .Q8H CAROL Oxytocin 30 unit in 500 ml s @ 1 mls/hr 04/05/21 07:00 04/05/21 12:55 Pitocin IV 11 milliunit/min .Q24H CAROL 11 mls/hr Titration Protocol 1 MILLIUNIT/MIN Ondansetron HCl 4 mg 04/04/21 11:55 04/05/21 07:35 Ondansetron 2 Mg /Ml Sdv 2 Ml IVP 4 mg Q4H PRN Administration NAUSEA AND VOMITI NG PFSH Anesthesia PFSH: Medical History Anxiety Anxiety with depression Borderline personality disorder Cannabis abuse No pertinent past medical history neghx: htn,dm,thyroid,dvt/pe,herpes ----denies partner with herpes Surgical History H/O unilateral salpingectomy (~2009) Left-- at the same time of her appy History of appendectomy (~2009) Family History Grandmother Breast cancer Paternal grandmother--- dx age 60's Diabetes Maternal grandmother Hypertension Paternal grandmother Family/Other Diabetes Paternal uncle Grandfather Heart disease Paternal Social History Smoking and tobacco status: former smoker Quit status (tobacco): has quit using tobacco Year quit tobacco: Beginning of 09/2020 Former quit date comment: Was smoking 1-2 cig/week Alcohol intake: never Additional social history: Drug use: Hx of marijuana use; last use was Aug 2020 Female Reproductive History: : 1 Data Anesthesia CBC & Chem 7: 04/04/21 10:54 04/04/21 10:54 Other Labs: Laboratory Results - last 48 hr 04/04/21 04/04/21 04/04/21 10:50 10:50 10:50 WBC RBC Hgb Hct MCV MCH MCHC RDW Plt Count MPV Neut % (Auto) Lymph % (Auto) [place] % (Auto) Eos % (Auto) Baso % (Auto) Neut # (Auto) Lymph # (Auto) [place] # (Auto) Eos # (Auto) Baso # (Auto) Nucleated RBC % (auto) Nucleated RBCs # Sodium Potassium Chloride Carbon Dioxide Anion Gap BUN Creatinine GFR Calculation Glucose Calculated Osmolality Uric Acid Calcium Total Bilirubin AST ALT Alkaline Phosphatase Total Protein Albumin Globulin Urine Color Yellow Urine Appearance Clear Urine pH 6 Ur Specific Kam[place] 1.020 Urine Protein Trace Urine Glucose (UA) Norm Urine Ketones Negative Urine Blood 2+ H Urine Nitrate Negative Urine Bilirubin Neg Urine Urobilinogen 1 H Ur Leukocyte Esterase Negative Urine RBC 15-25 H Urine WBC None Ur Squamous Epith Cells 5-10 H Amorphous Sediment Not Reportable Urine Bacteria Trace Hyaline Casts 0-4 H Urine Mucus 2+ U Random Total Protein 74 Urine Creatinine 163 Protein/Creatinin Ratio 0.45 Urine Opiates Screen Negative Ur Barbiturates Screen Negative Ur Phencyclidine Scrn Negative Ur Amphetamines Screen Negative U Benzodiazepines Scrn Negative Urine Cocaine Screen Negative U Marijuana (THC) Screen Positive H 04/04/21 04/04/21 10:54 10:54 WBC 13.4 H RBC 3.75 L Hgb 12.4 Hct 37.2 MCV 99.2 H MCH 33.1 MCHC 33.3 RDW 13.7 Plt Count 243 MPV 11.7 H Neut % (Auto) 68.5 Lymph % (Auto) 20.7 [place] % (Auto) 8.4 Eos % (Auto) 0.5 Baso % (Auto) 0.3 Neut # (Auto) 9.17 H Lymph # (Auto) 2.8 [place] # (Auto) 1.1 H Eos # (Auto) 0.1 Baso # (Auto) 0.0 Nucleated RBC % (auto) 0 Nucleated RBCs # 0.0 Sodium 137 Potassium 4.4 Chloride 104 Carbon Dioxide 21 L Anion Gap 16.4 BUN 6 Creatinine 0.4 L GFR Calculation 197.8 H Glucose 86 Calculated Osmolality 281 L Uric Acid 4.9 Calcium 8.8 Total Bilirubin 0.2 AST 15 ALT 8 Alkaline Phosphatase 253 H Total Protein 6.5 L Albumin 3.5 Globulin 3.0 Urine Color Urine Appearance Urine pH Ur Specific [place] Urine Protein Urine Glucose (UA) Urine Ketones Urine Blood Urine Nitrate Urine Bilirubin Urine Urobilinogen Ur Leukocyte Esterase Urine RBC Urine WBC Ur Squamous Epith Cells Amorphous Sediment Urine Bacteria Hyaline Casts Urine Mucus U Random Total Protein Urine Creatinine Protein/Creatinin Ratio Urine Opiates Screen Ur Barbiturates Screen Ur Phencyclidine Scrn Ur Amphetamines Screen U Benzodiazepines Scrn Urine Cocaine Screen U Marijuana (THC) Screen Cardiac Studies: No Data to Display
--- NOTE | 2021-04-05 13:23 | ANES.PROC ---
Anesthesia Procedures Procedure/Date: 04/05/21 Epidural: Time Out Performed: Yes Consents Signed: Procedure Consent Consent: requested by attending/covering physician, from patient, risks and benefits reviewed and patient agrees to proceed Lumbar Level: L3-L4 Epidural position: sitting Epidural procedure: sterile prep of area, 1% lidocaine to numb the area, 18 g needle, neg for paresthesia, test dose given, 1.5% xylocaine 1:200k epi, placed PCEA, no systemic response, sterile dressing applied, L.U.D. no apparent complications and 0.2% Ropiavacaine @ mls/hr (13) Additional Comments: WALLACE at 5cm, cath at 10cm. 5mls 2% lido PF bolused.
--- NOTE | 2021-04-05 19:47 | PC.NURSE ---
Pitocin increased to 6mu/hr per verbal order by Dr. Vera. KASANDRA RN
--- NOTE | 2021-04-05 20:07 | PC.NURSE ---
Pitocin increased to 7mu/hr per verbal order by Dr. Vera. KASANDRA RN
--- NOTE | 2021-04-05 21:57 | PM.DELIVERY ---
Delivery Note: Date of delivery: April 05, 2021 Pre-delivery diagnoses: iup at 37 4/7, mild preeclampsia Post-delivery diagnoses: same, delivered Procedure: Op report anesthesia: Epidural Delivering Physician: Chuy Estimated blood loss (mL): 50 Findings: term male in the SOFI presentation Pre-Delivery Course: The patient was admitted for induction for mild preeclampsia. She received cytotec then had pitocin started. She had SROM, received an epidural and had complete cervical dilation Delivery: The patient had complete cervical dilation and began to push. The head delivered in the SOFI position over an intact perineum under oral anesthesia. The nose and mouth were bulb suctioned. The shoulders and body delivered atraumatically. There was a compound right hand. The baby was placed onto the mother's abdomen. The cord was clamped and cut. Cord blood was obtained. The placenta delivered spontaneously. It was inspected and found to be intact. Inspection of the perineum revealed a right labial laceration which was repaired in interrupted sutures. The perineum was also split in a V pattern posterior to the posterior fourchette. This was hemostatic and no sutures were placed.. Estimated blood loss 50 mL. Apgars on baby were 9 at 1 minute and 9 at 5 minutes. Weight of baby is 6 pounds. Mother and baby were stable post delivery. Post-Delivery Status: mother and infant were stable A&P Assessment and plan (1) Pre-eclampsia in third trimester: Status: Acute (2) Anxiety: Status: Chronic (3) Mental disorder affecting : Status: Acute Qualifiers: Trimester: second trimester Qualified Code(s): O99.342 - Other mental disorders complicating , second trimester Coding Level of Care Code Acute Patternmaker Pressure Cast for [facility] Fwd Diagnoses Pre-eclampsia in third trimester O14.93 Anxiety F41.9 Mental disorder affecting O99.342 Trimester: second trimester
[2021-04-05] MEDS: oxytocin 30 UNIT/500 ML BAG 600 UNIT IV (22:05)
--- NOTE | 2021-04-05 23:31 | PC.NURSE ---
Verbal orders given by Dr. Vera to increase pitocin to 5
[2021-04-06] VITALS (22 sets, daily range): BP systolic 113–136; BP diastolic 57–89; PULSE 81–117; RESP 14–16; TEMP 36.5–36.7
[2021-04-06] MEDS: HYDROcodone-acetaminophen 5-325 mg Tablet PO ×2 (02:50→08:49)
[2021-04-06] MEDS: ibuprofen 800 mg tablet PO ×3 (08:50→20:11)
[2021-04-06] MEDS: prenatal vitamin Capsule 1 CAP PO (08:50)
[2021-04-06] MEDS: docusate sodium 100 mg Capsule PO ×2 (08:50→19:10)
[2021-04-06 12:27] LABS: Hematocrit 31.4 % (37.0-47.0); Hemoglobin 10.7 g/dL (11.5-15.3); Mean Corpuscular HGB Conc 34.1 g/dL (30.0-36.0); Mean Corpuscular Hemoglobin 33.8 pg (28.0-34.0); Mean Corpuscular Volume 99.1 fL (81-99); Mean Platelet Volume 12.1 fL (7.4-10.4); Platelet Count 194 10^3/cmm (130-400); Red Blood Count 3.17 10^6/uL (4.1-5.3); White Blood Count 19.8 10^3/uL (4.0-10.0)
--- NOTE | 2021-04-06 15:46 | P.PN_ITS ---
Subjective Subjective: Interval history: The patient is doing well this AM. no complaints. cramping is improving. lochia normal. blood pressures have been normal Medications: Reviewed: Yes Vitals/I&O/Wt Last Vital Signs Temp 97.9 F 04/06/21 11:20 Pulse 81 04/06/21 11:16 Resp 16 04/06/21 11:20 BP 135/89 04/06/21 11:16 Pulse Ox 93 04/05/21 14:10 04/06/21 04/06/21 04/06/21 06:59 14:59 22:59 Intake Total 1008.5 / 1008.5 Output Total 400 / 400 400 / 400 Balance -400 / 782.167 608.5 / 608.5 Physical Exam Const: COMMON NORMALS: no acute distress, average body habitus, patient oriented x3, no limitations and healthy appearing GENERAL APPEARANCE: cooperative, comfortable, well kempt and well developed ORIENTATION/CONSCIOUSNESS: Yes awake, Yes oriented to person, Yes oriented to place and Yes oriented to time Resp: COMMON NORMALS: normal respiratory effort EFFORT & INSPECTION: Yes able to speak in complete sentences GI: COMMON NORMALS: non-tender Extremity: COMMON NORMALS: no clubbing, cyanosis or edema Neuro: COMMON NORMALS: patient oriented x3 SENSORIUM/ORIENTATION: Yes oriented to person, Yes oriented to place and Yes oriented to time Psych: APPEARANCE: Yes well kempt Urinary Catheter Management^: Bailey: Cath Placed During This Visit: yes, but has since been removed by the nurse Reason for Continuing Indwelling Catheter: Not indwelling catheter Urinary Catheter Date of Insertion: 04/05/21 Urinary Catheter Time of Insertion: 13:00 Date Urinary Catheter Removed: 04/02/21 Time Urinary Catheter Discontinued: 19:35 Data : 04/06/21 12:00 04/04/21 10:54 Micro: Microbiology 04/04/21 10:50 Urine Culture - Final Urine,Clean Catch A&P Assessment and plan (1) Pre-eclampsia in third trimester: Status: Acute (2) Anxiety: Status: Chronic (3) Supervision of normal : Status: Acute Qualifiers: Normal : normal first Trimester: second trimester Qualified Code(s): Z34.02 - Encounter for supervision of normal first , second trimester Attestations Medical Necessity Statement*: The patient has been admitted inpatient Coding Level of Care Code Acute It Service Delivery Manager for g Fwd Diagnoses Pre-eclampsia in third trimester O14.93 Anxiety F41.9 Supervision of normal Z34.02 Normal : normal first Trimester: second trimester
[2021-04-07 05:43] VITALS: BP 134/89; PULSE 74; RESP 18; TEMP 36.9
[2021-04-07] MEDS: prenatal vitamin Capsule 1 CAP PO (08:42)
[2021-04-07] MEDS: docusate sodium 100 mg Capsule PO (08:43)
[2021-04-07] MEDS: ibuprofen 800 mg tablet PO (08:43)
--- NOTE | 2021-04-07 09:19 | P.DS_ITS ---
Discharge Providers Date of Admission: 04/04/21 11:35 Date of Discharge: April 07, 2021 Attending Provider at Admission: Raoul Luz MD Attending Provider at Discharge: Myrna Vera MD Primary Care Provider: Heaven Ortega MD Diagnoses at Discharge Discharge Diagnosis (1) Pre-eclampsia in third trimester: Status: Acute (2) Anxiety: Status: Chronic (3) Supervision of normal : Status: Acute Qualifiers: Normal : normal first Trimester: second trimester Qualified Code(s): Z34.02 - Encounter for supervision of normal first , second trimester Reason for Visit Reason for Visit: High blood pressure Hospital Course Hospital Course The patient was admitted for induction for mild preeclampsia at term. She had spontaneous delivery of a term . She did well and on day #2, she was ready for discharge. Physical Exam Const: COMMON NORMALS: no acute distress, average body habitus and patient oriented x3 GENERAL APPEARANCE: cooperative, comfortable, well kempt and well developed ORIENTATION/CONSCIOUSNESS: Yes awake, Yes oriented to person, Yes oriented to place and Yes oriented to time Neck/C-Spine: COMMON NORMALS: full ROM and supple Resp: COMMON NORMALS: normal respiratory effort EFFORT & INSPECTION: Yes able to speak in complete sentences GI: COMMON NORMALS: Soft to palpation and non-tender PALPATION: Yes Soft to palpation Extremity: COMMON NORMALS: no clubbing, cyanosis or edema and no calf tenderness Neuro: COMMON NORMALS: patient oriented x3 SENSORIUM/ORIENTATION: Yes oriented to person, Yes oriented to place and Yes oriented to time Psych: COMMON NORMALS: mental status grossly normal, Normal thought process present, cooperative, normal affect and speech normal APPEARANCE: Yes grossly normal and Yes well kempt ATTITUDE: Yes calm and Yes engaged ACTIVITY/MOTOR BEHAVIOR: Yes appropriate eye contact SPEECH: Yes normal speech THOUGHT PROCESS: Normal thought process present Urinary Catheter Management^: Bailey: Cath Placed During This Visit: yes, but has since been removed by the nurse Reason for Continuing Indwelling Catheter: Not indwelling catheter Urinary Catheter Date of Insertion: 04/05/21 Urinary Catheter Time of Insertion: 13:00 Date Urinary Catheter Removed: 04/02/21 Time Urinary Catheter Discontinued: 19:35 Discharge Data Data Completed and Pending: Labs from last 24 hours 04/06/21 12:00 WBC 19.8 H RBC 3.17 L Hgb 10.7 L Hct 31.4 L MCV 99.1 H MCH 33.8 MCHC 34.1 RDW 14.0 Plt Count 194 MPV 12.1 H Vitals: Last Vital Signs Temp 98.5 F 04/07/21 05:43 Pulse 74 04/07/21 05:43 Resp 18 04/07/21 05:43 BP 134/89 04/07/21 05:43 Pulse Ox 93 04/05/21 14:10 Discharge Plan Discharge Patient Disposition: Home Condition: Stable Prescriptions: Continued metoclopramide HCl [Reglan] 10 mg tablet 10 mg PO .COMPLEX Qty: 120 RF: 2 pyridoxine (vitamin B6) [Vitamin B-6] 100 mg tablet 50 mg PO DAILY RF: 0 prenat.vits,cecile,pof-zaax-eidox Tablet 1 tab PO DAILY RF: 0 Unisom (doxylamine) 25 mg tablet 25 mg PO DAILY PRNRF: 0 escitalopram oxalate 10 mg tablet 10 mg PO DAILY Qty: 30 RF: 1 Discharge Orders: Discharge Order (Routine); Ordered 04/07/21 Ordered By: Myrna Vera Patient Instructions: Depression (GEN), Perineal Care (DC), Breast Care for the Breast Feeding Mother (DC), Vaginal Delivery (DC), Pre-eclampsia and Eclampsia (DC), OB Discharge Report, OB Food/Drug Interaction Guide, Opioid Safety, OB Proud Parent Packet, OB Vaginal Deliveries, OB Vaginal Deliveries - [facility] Discharge Attestations Time Spent in Discharge Care*: less than 30 min Quality Metrics Clinical Quality Measures During this hospital stay, did patient experience: None Coding Level of Care Code Acute Chg FW DC note Diagnoses Pre-eclampsia in third trimester O14.93 Anxiety F41.9 Supervision of normal Z34.02 Normal : normal first Trimester: second trimester
[2021-04-07 10:00] VITALS: BP 130/85; PULSE 91; RESP 16; TEMP 36.7; O2SAT 96
[2021-04-07 10:30] VITALS: BP 130/85; PULSE 91; RESP 16; TEMP 36.7; O2SAT 96
== END 2021-04-07 10:30 | disposition home or self-care (01) | DRG 807 ==
PROVIDERS: Obstetrics & Gynecology; Admitting Provider Obstetrics & Gynecology; PCP Family Medicine; Visit Provider Obstetrics & Gynecology
DX: O14.04 Mild to moderate pre-eclampsia, complicating childbirth (principal); Z37.0 Single live birth; O70.0 First degree perineal laceration during delivery; O99.344 Other mental disorders complicating childbirth; F41.8 Other specified anxiety disorders; F60.3 Borderline personality disorder; O99.324 Drug use complicating childbirth; F12.90 Cannabis use, unspecified, uncomplicated; Z3A.37 37 weeks gestation of pregnancy
CPT/HCPCS: 36415; 51702; 59025; 59409; 80053; 80306; 81001; 82570; 84156; 84315; 84550; 85025; 85027; 87086; 96374; 96375; 99211; J2405; J2795; J3010

== ENCOUNTER → 2021-04-23 07:41 | Outpatient (BNVA) | payer MEDICAID, SELFPAY | PROVIDERS: PCP Family Medicine; Visit Provider Nurse Practitioner Psychiatric/Mental Health | DX: F33.1 Major depressive disorder, recurrent, moderate (principal); F41.9 Anxiety disorder, unspecified; F60.3 Borderline personality disorder | CPT/HCPCS: 99213 ==

== ENCOUNTER → 2024-10-18 08:40 | Outpatient (BNVA) | payer MEDICAID, SELFPAY | PROVIDERS: PCP Family Medicine; Visit Provider Emergency Medicine | DX: R50.9 Fever, unspecified (principal); N39.0 Urinary tract infection, site not specified; R11.2 Nausea with vomiting, unspecified | CPT/HCPCS: 81000; 81025; 87400; 87426 ==

== ENCOUNTER → 2025-08-17 10:44 | Outpatient (BNVA) | payer MEDICAID, SELFPAY | PROVIDERS: PCP Family Medicine; Visit Provider Emergency Medicine | DX: J02.9 Acute pharyngitis, unspecified (principal) | CPT/HCPCS: 87071; 87880 ==

== ENCOUNTER → 2025-10-10 10:47 | Outpatient (BNVA) | payer SELFPAY | PROVIDERS: PCP Family Medicine | DX: J02.9 Acute pharyngitis, unspecified (principal) | CPT/HCPCS: 87071; 87880 ==